=== PATIENT | female | born 1950 | race Caucasian/White ===

== ENCOUNTER → 2016-11-30 | Outpatient (CLI) | payer MEDICARE, OTHER ==
[~2016-11-30] MED LIST: REGADENOSON 0.4 MG/5 ML SYRINGE ONE
== END | disposition home or self-care (01) ==
LOC: CFH 12:41
PROVIDERS: ATTEND Genetic Counselor, MS
DX: R94.31 Abnormal electrocardiogram [ECG] [EKG] (principal)
CPT/HCPCS: 78452; 93017; A9502; J2785

== ENCOUNTER → 2017-06-26 | Outpatient (CLI) | payer MEDICARE, OTHER | END | disposition home or self-care (01) | LOC: CFH 13:40 | PROVIDERS: ATTEND Nurse Practitioner Family | DX: Z12.31 Encounter for screening mammogram for malignant neoplasm of breast (principal); Z13.820 Encounter for screening for osteoporosis; M81.0 Age-related osteoporosis without current pathological fracture; M85.88 Other specified disorders of bone density and structure, other site; N95.1 Menopausal and female climacteric states | CPT/HCPCS: 77080; 77067 ==

== ENCOUNTER 2017-10-20 15:57 | Emergency (ER) | payer MEDICARE, OTHER ==
[~2017-10-20] VITALS: Ht 172.7 cm; Wt 90.9 kg
[2017-10-20 16:00] VITALS: BP 169/94
[2017-10-20 16:53] LABS: MICROSCOPIC NOT IND
[2017-10-20] MEDS ORDERED: SODIUM CHLORIDE 0.9% 1,000ML IVBOLUS ONE (17:00)
[2017-10-20] MEDS ORDERED: SODIUM CHLORIDE FLUSH 10ML SYR IVF ONE ×2 (17:00)
[2017-10-20 17:02] LABS: CULTURE INDICATED? NO
[2017-10-20 17:11] LABS: BASOPHILS # (AUTO) 0.04 x10^3/uL (0-0.1); BASOPHILS % (AUTO) 0 % (0-1); EOSINOPHILS % (AUTO) 1 % (1-7); LYMPHOCYTES # (AUTO) 2.33 x10^3/uL (1-3.4); LYMPHOCYTES % (AUTO) 27 % (22-44); MD NO; MEAN CORPUSCULAR HEMOGLOBIN 29.7 pg (27.0-34.8); MEAN CORPUSCULAR VOLUME 87.3 fL (80-100); MEAN PLATELET VOLUME 8.1 fL (7.4-10.4); MONOCYTES # (AUTO) 0.65 x10^3/uL (0.2-0.8); MONOCYTES % (AUTO) 7 % (2-9); NEUTROPHILS # (AUTO) 5.67 x10^3/uL (1.8-6.8); NEUTROPHILS % (AUTO) 65 % (42-75); PLATELET COUNT 295 x10^3/uL (130-400); RED BLOOD COUNT 4.45 x10^6/uL (3.82-5.3); RED CELL DISTRIBUTION WIDTH 13.9 % (9.6-15.2)
[2017-10-20 17:20] LABS: ALANINE AMINOTRANSFERASE 22 U/L (12-78); ALBUMIN 3.7 g/dL (3.4-5.0); ANION GAP 9 mmol/L (5-15); CALCIUM 9.1 mg/dL (8.5-10.1); CHLORIDE 108 mmol/L (98-107)
[2017-10-20 17:22] LABS: ALKALINE PHOSPHATASE 78 U/L (45-117); BILIRUBIN,TOTAL 0.3 mg/dL (0.2-1.0); CREATININE 1.04 mg/dL (0.55-1.02); TOTAL PROTEIN 7.7 g/dL (6.4-8.2)
[2017-10-20] MEDS ORDERED: OMNIPAQUE 350 MG/ML, 100ML BOTTLE ONE (18:00)
== END 2017-10-20 19:21 | disposition home or self-care (01) ==
LOC: ED 18:58
DX: K59.00 Constipation, unspecified (principal); E03.9 Hypothyroidism, unspecified; I10 Essential (primary) hypertension; E78.5 Hyperlipidemia, unspecified; K21.9 Gastro-esophageal reflux disease without esophagitis
CPT/HCPCS: 36415; 74021; 74177; 80053; 81003; 83690; 85025; 99285; J7030; Q9967

== ENCOUNTER → 2018-04-08 | Outpatient (CLI) | payer MEDICARE, OTHER | END | disposition home or self-care (01) | LOC: CFH 14:23 | PROVIDERS: ATTEND Genetic Counselor, MS | DX: R92.8 Other abnormal and inconclusive findings on diagnostic imaging of breast (principal) | CPT/HCPCS: 77065 ==

== ENCOUNTER → 2018-06-13 | Outpatient (CLI) | payer MEDICARE, OTHER ==
[~2018-06-13] MED LIST changes: +GADOBUTROL 10 MMOL/10 ML VIAL ONE; -REGADENOSON 0.4 MG/5 ML SYRINGE ONE
== END | disposition home or self-care (01) ==
LOC: CFH 14:36
PROVIDERS: ATTEND Surgery
DX: C50.019 Malignant neoplasm of nipple and areola, unspecified female breast (principal); M88.88 Osteitis deformans of other bones
CPT/HCPCS: 77049; 82565; A9585

== ENCOUNTER → 2018-06-26 | Outpatient (CLI) | payer MEDICARE, OTHER ==
[~2018-06-26] MED LIST changes: +CHOL2000 PO; -GADOBUTROL 10 MMOL/10 ML VIAL ONE; +HYDR25TA11 PO; +LEVO50TA64 PO; +LISI-170 PO; +PANT40TA5 PO; +ROSU20TA PO; +TRAM50TA2 PO; +VIT1CAPS10 PO
== END | disposition home or self-care (01) ==
LOC: RAD 14:49
PROVIDERS: ATTEND Surgery
DX: Z01.818 Encounter for other preprocedural examination (principal); C50.911 Malignant neoplasm of unspecified site of right female breast
CPT/HCPCS: 38792; A9541

== ENCOUNTER 2018-06-27 05:19 | Day surgery (SDC) | payer MEDICARE, OTHER ==
[2018-06-24 12:33] LABS: CHLORIDE 109 mmol/L (98-107)
[2018-06-24 12:53] LABS: ALANINE AMINOTRANSFERASE 20 U/L (12-78); ALBUMIN 4.1 g/dL (3.4-5.0); ALKALINE PHOSPHATASE 73 U/L (45-117); ANION GAP 6 mmol/L (5-15); BILIRUBIN,TOTAL 0.5 mg/dL (0.2-1.0); CREATININE 0.96 mg/dL (0.55-1.02); TOTAL PROTEIN 7.8 g/dL (6.4-8.2)
[~2018-06-27] VITALS: Ht 172.7 cm; Wt 93.0 kg
[~2018-06-27 05:19] MED LIST changes: +OCUVITE SOFTGE1 EACH PO; -VIT1CAPS10 PO
[2018-06-27 06:34] VITALS: BP 146/82
[2018-06-27] MEDS ORDERED: LACTATED RINGERS 1,000 ML IV SCH (06:34)
[2018-06-27] MEDS ORDERED: FENTANYL PF 250 MCG/5ML ONE (06:44)
[2018-06-27] MEDS ORDERED: MIDAZOLAM 1 MG/ML, 2ML ONE (06:44)
[2018-06-27] MEDS ORDERED: ACETAMINOPHEN 500 MG TABLET PO ONE (07:00)
[2018-06-27] MEDS ORDERED: GABAPENTIN 300 MG CAPSULE PO ONE (07:00)
[2018-06-27] MEDS ORDERED: BUPIVACAINE/PF-EPI 0.5% 1:200K ONE (07:01)
[2018-06-27] MEDS ORDERED: ISOSULFAN BLUE 10 MG/ML, 5ML IV ONE (07:01)
[2018-06-27] MEDS ORDERED: hydrALAzine 20 MG/ML, 1ML IV PRN (07:30)
[2018-06-27] MEDS ORDERED: PROMETHAZINE 25 MG/ML, 1ML IM PRN ×2 (07:30)
[2018-06-27] MEDS ORDERED: PROMETHAZINE 12.5 MG SUPP PR PRN (07:30)
[2018-06-27] MEDS ORDERED: PROMETHAZINE 25 MG/ML, 1ML IV PRN (07:30)
[2018-06-27] MEDS ORDERED: OXYcodone 5 MG/5 ML ORAL.SOL UDC PO PRN (07:30)
[2018-06-27] MEDS ORDERED: ONDANSETRON ODT 8 MG PO PRN (07:30)
[2018-06-27] MEDS ORDERED: MORPHINE SULFATE 4 MG/ML, 1ML IVPush PRN (07:30)
[2018-06-27] MEDS ORDERED: MEPERIDINE/PF 25MG/0.5ML IVPush PRN (07:30)
[2018-06-27] MEDS ORDERED: PROMETHAZINE 25 MG SUPP PR PRN (07:30)
[2018-06-27] MEDS ORDERED: LABETALOL 5MG/ML, 20ML IV PRN (07:30)
[2018-06-27] MEDS ORDERED: ONDANSETRON 2MG/ML, 2ML IV PRN (07:30)
[2018-06-27] MEDS ORDERED: DEXAMETHASONE 4 MG/ML, 1ML ONE (09:30)
[2018-06-27] MEDS ORDERED: ROCURONIUM 10MG/ML,5ML ONE (09:30)
[2018-06-27] MEDS ORDERED: GLYCOPYRROLATE 0.2MG/1ML, 5ML ONE (09:30)
[2018-06-27] MEDS ORDERED: CEFAZOLIN 1,000 MG ONE (09:30)
[2018-06-27] MEDS ORDERED: NEOSTIGMINE 1 MG/ML, 10ML ONE (09:30)
[2018-06-27] MEDS ORDERED: PROPOFOL 10 MG/ML, 20ML ONE (09:30)
[2018-06-27] MEDS ORDERED: ONDANSETRON 2MG/ML, 2ML ONE (09:30)
[2018-06-27] MEDS ORDERED: FENTANYL PF 100 MCG/2ML ONE (09:41)
[2018-06-27] MEDS ORDERED: OXYcodone 5 MG/5 ML ORAL.SOL UDC ONE (09:41)
[2018-06-27] MEDS: FENTANYL PF 100 MCG/2ML IV PRN ×2 (09:44→09:55)
[2018-06-27] MEDS ORDERED: HYDROmorphone 2 MG/ML, 1ML ONE (10:00)
[2018-06-27] MEDS: HYDROmorphone 2 MG/ML, 1ML IVPush PRN ×3 (10:02→10:23)
== END 2018-06-27 13:10 | disposition home or self-care (01) ==
LOC: OUT 05:19
PROVIDERS: ATTEND Surgery
DX: C50.911 Malignant neoplasm of unspecified site of right female breast (principal); R59.1 Generalized enlarged lymph nodes; K21.9 Gastro-esophageal reflux disease without esophagitis; I10 Essential (primary) hypertension; E03.9 Hypothyroidism, unspecified; E78.5 Hyperlipidemia, unspecified; Z79.82 Long term (current) use of aspirin; Z98.890 Other specified postprocedural states
CPT/HCPCS: 19301; 36415; 38525; 80053; 88307; 88329; 88333; 93005; J0690; J1100; J1170; J2250; J2405; J2704; J2710; J3010; J3490

== ENCOUNTER → 2018-07-18 | Outpatient (CLI) | payer MEDICARE, OTHER ==
[~2018-07-18] MED LIST changes: -ROSU20TA PO; +ROSU20TA2 PO
== END | disposition home or self-care (01) ==
LOC: ROC 08:00 → EDSTATUS 07-22 08:51
PROVIDERS: ATTEND Radiology Radiation Oncology
DX: C50.911 Malignant neoplasm of unspecified site of right female breast (principal); K21.9 Gastro-esophageal reflux disease without esophagitis; E78.00 Pure hypercholesterolemia, unspecified; I10 Essential (primary) hypertension
CPT/HCPCS: G0463

== ENCOUNTER 2018-10-01 08:45 | Outpatient (CLI) | payer MEDICARE, OTHER | END 2018-10-01 23:59 | disposition home or self-care (01) | LOC: ROC 08:45 | PROVIDERS: ATTEND Radiology Radiation Oncology | DX: C50.111 Malignant neoplasm of central portion of right female breast (principal) | CPT/HCPCS: G0463 ==

== ENCOUNTER → 2019-06-04 | Outpatient (CLI) | payer MEDICARE, OTHER ==
[~2019-06-04] MED LIST changes: +HYDR-826 PO; -HYDR25TA11 PO
== END | disposition home or self-care (01) ==
LOC: CFH 10:28
PROVIDERS: ATTEND Internal Medicine Hematology & Oncology
DX: M85.832 Other specified disorders of bone density and structure, left forearm (principal)
CPT/HCPCS: 77080

== ENCOUNTER → 2020-01-04 | Outpatient (CLI) | payer MEDICARE, OTHER | END | disposition home or self-care (01) | LOC: CFH 10:45 | PROVIDERS: ATTEND Internal Medicine Hematology & Oncology | DX: Z12.31 Encounter for screening mammogram for malignant neoplasm of breast (principal) | CPT/HCPCS: 77063; 77067 ==

== ENCOUNTER → 2021-01-30 | Outpatient (CLI) | payer MEDICARE, OTHER ==
[~2021-01-30] MED LIST changes: -PANT40TA5 PO; +PANT40TA6 PO
== END | disposition home or self-care (01) ==
LOC: CFH 10:59
PROVIDERS: ATTEND Internal Medicine Hematology & Oncology
DX: Z12.31 Encounter for screening mammogram for malignant neoplasm of breast (principal)
CPT/HCPCS: 77063; 77067